=== PATIENT | male | born 1965 | race Caucasian/White ===

== ENCOUNTER 2018-11-02 06:07 | Outpatient (CLI) | payer MEDICARE, MEDICAID ==
[~2018-11-02] VITALS: Ht 171.4 cm; Wt 47.7 kg
[~2018-11-02 06:07] MED LIST: IRON1TAB94 PO; LVT.05T PO; OLN5T PO; VITA1CAP59 PO
[2018-11-02] MEDS ORDERED: LEVO50TA6 PO (11:04)
[2018-11-02] MEDS ORDERED: MELA10CA2 PO (11:04)
[2018-11-02] MEDS ORDERED: OLAN5TAB3 PO (11:04)
[2018-11-02] MEDS ORDERED: FERR-84 PO (11:04)
[2018-11-02] MEDS ORDERED: VITA1CAP PO (11:04)
== END 2018-11-03 09:43 | disposition home or self-care (01) ==
LOC: PREOP 06:07
PROVIDERS: ATTEND Surgery
DX: Z01.818 Encounter for other preprocedural examination (principal)

== ENCOUNTER 2018-11-09 06:26 | Day surgery (SDC) | payer MEDICARE, MEDICAID ==
[~2018-11-09] VITALS: Ht 171.4 cm; Wt 47.7 kg
[2018-11-09] VITALS (9 sets, daily range): BP systolic 96–108; BP diastolic 59–67
[~2018-11-09 06:26] MED LIST changes: +FERR-84 PO; +LEVO50TA6 PO; +MELA10CA2 PO; +OLAN5TAB3 PO; +VITA1CAP PO
[2018-11-09] MEDS ORDERED: LIDOCAINE PF 2% 5 ML (XYLOCAINE) VIAL ONE (06:55)
[2018-11-09] MEDS ORDERED: fentaNYL INJECTION 100 MCG/2 ML AMP ONE (06:55)
[2018-11-09] MEDS ORDERED: proPOfol 200 MG/20 ML (DIPRIVAN) VIAL IV ONE (06:55)
[2018-11-09] MEDS ORDERED: SEVOFLURANE (ULTANE) 15 ML INHAL SOLN ONE ×4 (06:55→08:16)
[2018-11-09] MEDS ORDERED: CATHETER FLUSH 10 ML SYR IV PRN (07:00)
[2018-11-09] MEDS ORDERED: ceFAZolin INJECTION 1,000 MG in WATER (STERILE) FOR INJECTION 10 ML IV ONE (07:00)
[2018-11-09] MEDS: LACTATED RINGERS 1,000 ML IV PRN ×2 (07:23→08:26)
--- NOTE | 2018-11-09 07:45 | Progress Note-Pre Operative ---
Pre-Operative Progress Note H&P Reviewed The H&P was reviewed, patient examined and no changes noted. Date Seen by Provider: Nov 09, 2018 Time Seen by Provider: 07:37 Date H&P Reviewed: Nov 09, 2018 Time H&P Reviewed: 07:37 Pre-Operative Diagnosis: skin lesion neck KATARZYNA GARRISON DO Nov 09, 2018 07:45
[2018-11-09] MEDS ORDERED: fentaNYL INJECTION 100 MCG/2 ML AMP IVP ONE (08:15)
[2018-11-09] MEDS ORDERED: ONDANSETRON 4 MG/2 ML (SDV) Z0FRAN IVP PRN (08:15)
[2018-11-09] MEDS ORDERED: morphine INJ 10 MG/ML 1ML (SYR OR VIAL) IVP ONE (08:15)
[2018-11-09] MEDS ORDERED: MEPERIDINE (DEMEROL) INJ 50 MG/ML IVP ONE (08:15)
[2018-11-09] MEDS ORDERED: ONDANSETRON 4 MG/2 ML (SDV) Z0FRAN ONE (08:20)
[2018-11-09] MEDS ORDERED: DEXAMETHASONE 10 MG/ML (DECADRON) 1 ML VIAL ONE (08:20)
--- NOTE | 2018-11-09 08:30 | Progress Note-Post Operative ---
Post-Operative Progess Note Surgeon (s)/Trade Mark Attorney (s) Surgeon KATARZYNA GARRISON DO Trade Mark Attorney: na Pre-Operative Diagnosis skin lesion neck Post-Operative Diagnosis same Procedure & Operative Findings Date of Procedure 11/09/18 Procedure Performed/Findings excision skin lesion neck 1.5x4cm Anesthesia Type gen Estimated Blood Loss Estimated blood loss (mL): min Specimens/Packing Specimens Removed skin lesion neck KATARZYNA GARRISON DO Nov 09, 2018 08:30
--- NOTE | 2018-11-09 08:32 | Discharge Inst-Simple/Standard ---
Discharge Inst-Standard Discharge Medications New, Converted or Re-Newed RX: RX on Chart Patient Instructions/Follow Up Plan of Care/Instructions/FU: 12-14 days Abrahan Activity as Tolerated: Yes Discharge Diet: Regular Diet Other Inst to Patient Follow up Appt: Make appointment for 12-14 days. Instructions: No strenuous activity. May shower in 24 hours, no tub bath or soaking. Use incentive spirometer at home as directed. No Smoking Skin/Wound Care: May remove bandages in 24 hours. Keep area clean and dry. Symptoms to Report: Appetite Changes, Extremity Discoloration, Numbness/Tingling, Swelling Increased, Bleeding Excessive, Eyesight Changes, Pain Increased, Urine Color Change, Constipation(Persistent), Fever over 101 degree F, Pain/Pressure in chest, Urinating Difficulty, Cough Up/Vomit Blood, Heart Beat Irreg/Pounding, Pain/Pressure in jaw, Vaginal Bleeding Increase, Cramps in feet or legs, Lightheadedness, Pain/Pressure in shoulder, Diarrhea(Persistent), Memory Changes Suddenly, Questions/Concerns, Weight gain consecutive days, Dizziness/Fainting, Nausea/Vomiting, Shortness of Breath, Weight gain over 2 pounds If questions or concerns contact your physician Or seek help at emergency department. KATARZYNA GARRISON DO Nov 09, 2018 08:32
--- NOTE | 2018-11-09 12:22 | Anesthesia-General Post-Op ---
General Patient Condition Mental Status/LOC: Same as Preop Cardiovascular: Satisfactory Nausea/Vomiting: Absent Respiratory: Satisfactory Pain: Controlled Complications: Absent Post Op Complications Complications None Follow Up Care/Instructions Patient Instructions None needed. Anesthesia/Patient Condition Patient Condition Patient is doing well, no complaints, stable vital signs, no apparent adverse anesthesia problems. No complications reported per nursing. JARRETT BLACK CRNA Nov 09, 2018 12:22
--- NOTE | 2018-11-09 12:49 | OPERATIVE REPORT ---
DATE OF SERVICE: 11/09/2018 PREOPERATIVE DIAGNOSIS: Skin lesion, neck. POSTOPERATIVE DIAGNOSIS: Skin lesion, neck. PROCEDURE: Excision of skin lesion neck 1.5 x 4 cm. SURGEON: Katarzyna Gauthier DO ANESTHESIA: General. ESTIMATED BLOOD LOSS: Minimal. COMPLICATIONS: None. INDICATIONS: The patient is a 53-year-old male with skin lesion on the posterior neck that has continued to be slightly ulcerated. He understands risks and benefits of procedure and wished to proceed with procedure. Consent was signed and placed on the chart. DESCRIPTION OF PROCEDURE: The patient was taken to the operating suite, placed in the right lateral recumbent position. Timeout was performed. Local anesthetic was infiltrated around the area. An elliptical incision measuring 1.5 x 4 cm was made, removing skin and subcutaneous tissues. Once removed, this was labeled short suture superior and long suture left lateral. The area was then washed and dried. Hemostasis was achieved. The skin was then closed using 3-0 Prolene in simple interrupted fashion. The area was washed and dried and sterile bandage was applied. The patient tolerated the procedure well without any complications. He was taken to recovery room in stable condition. Job ID: [id number] DocumentID: [id number] Dictated Date: 11/09/2018 08:34:20 Mounting Inspector Date: 11/09/2018 12:49:03 Dictated By: KATARZYNA GAUTHIER DO [facility]OSPITALJose R
== END 2018-11-09 10:00 | disposition home or self-care (01) ==
LOC: SDC 06:26
PROVIDERS: ATTEND Surgery
DX: C44.42 Squamous cell carcinoma of skin of scalp and neck (principal); E07.9 Disorder of thyroid, unspecified; F20.9 Schizophrenia, unspecified; Z79.899 Other long term (current) drug therapy; Z82.49 Family history of ischemic heart disease and other diseases of the circulatory system; Z82.3 Family history of stroke
CPT/HCPCS: 87081; 88305

== ENCOUNTER → 2020-06-17 | Outpatient (CLI) | payer MEDICARE, MEDICAID ==
--- NOTE | 2020-06-17 09:19 | Diagnostic Imaging Report ---
INDICATION: LT ARM WEAKNESS WRIST PAIN NECK PAIN TECHNIQUE: 4 radiographs, 3 views of the left shoulder CORRELATION STUDY: None FINDINGS: The glenohumeral and acromioclavicular alignment are maintained and unremarkable. There is no evidence for acute fracture or dislocation. The visualized soft tissues are unremarkable. Likely old left rib fracture deformities. Mild left apical pleural thickening. IMPRESSION: 1. Negative for acute bony abnormality about the shoulder. Dictated by: Dictated on workstation # [id number]
--- NOTE | 2020-06-17 09:21 | Diagnostic Imaging Report ---
INDICATION: LT ARM WEAKNESS WRIST PAIN NECK PAIN TECHNIQUE: 3 views of the left wrist CORRELATION STUDY: None FINDINGS: The osseous structures of the wrist have an unremarkable appearance. Alignment is anatomic. There is no acute bony abnormality. The visualized soft tissues appearing unremarkable. IMPRESSION: 1. Unremarkable examination of the left wrist. Dictated by: Dictated on workstation # [id number]
--- NOTE | 2020-06-17 09:23 | Diagnostic Imaging Report ---
INDICATION: Pain and numbness over the past 3 days. No known injury. TECHNIQUE: AP, lateral, and odontoid views of the cervical spine.. CORRELATION STUDY: None. FINDINGS: The cervicothoracic junction is not visualized on the lateral projection. The visualized cervical spinal alignment is anatomic. Vertebral body heights are maintained. Disc spaces are overall preserved. No significant large bulky endplate spur-like formation. The odontoid is largely obscured. Lateral masses of C1-C2 are aligned. Posterior elements demonstrate relatively normal alignment. Prevertebral soft tissues are unremarkable. IMPRESSION: Incomplete visualization of the cervicothoracic junction. Visualized cervical spine is unremarkable. Dictated by: Dictated on workstation # [id number]
== END ==
LOC: RAD 08:48
PROVIDERS: ATTEND Nurse Practitioner Family
DX: M25.532 Pain in left wrist (principal); M54.2 Cervicalgia; R53.1 Weakness
CPT/HCPCS: 72040; 73030; 73110

== ENCOUNTER → 2020-07-11 | Outpatient (CLI) | payer MEDICARE, MEDICAID ==
--- NOTE | 2020-07-11 16:20 | Diagnostic Imaging Report ---
EXAMINATION: Magnetic resonance imaging of the left wrist without contrast DATE: July 11, 2020. COMPARISON: Left wrist radiographs June 17, 2020. HISTORY: 54-year-old male, left wrist pain. TECHNIQUE: Magnetic Resonance Imaging sequences were performed of the wrist without contrast. FINDINGS: TRIANGULAR FIBROCARTILAGE COMPLEX: The triangular fibrocartilage complex is grossly intact. INTRINSIC LIGAMENTS: The scapholunate and lunotriquetral ligaments are grossly intact. JOINTS: The radiocarpal, intercarpal, and distal radioulnar joints are intact. There is no joint effusion. CARPAL TUNNEL: The flexor retinaculum is unremarkable. The flexor digitorum superficialis and profundus are intact. The median nerve is unremarkable. FLEXOR TENDONS: The flexor carpi ulnaris, flexor pollicis longus and carpi radialis are intact. EXTENSOR TENDONS: Radial side extensor tendons are intact including: extensor pollicis longus, extensor carpi radialis brevis, extensor carpi radialis longus, extensor pollicis brevis and abductor pollicis longus. The extensor carpi ulnaris, extensor digitorum, extensor digiti minimi and extensor indicis tendons are intact. BONE: The bones all have normal configuration. The bone marrow signal is within normal limits. Specifically, negative for fracture, osteomyelitis, osteonecrosis, or marrow replacing process. BURSAE AND SOFT TISSUES: There is a dorsal ganglion cyst near the dorsal intercarpal ligament measuring 6 x 2 x 5 mm in size best demonstrated on coronal T2 fat saturation sequence image 13. IMPRESSION: 1. Grossly intact triangular fibrocartilage complex and intrinsic wrist ligaments. 2. Intact tendons without evidence of tenosynovitis. 3. No acute fracture, bone contusion, or evidence of osteonecrosis. 4. Dorsal ganglion cyst near the dorsal intercarpal ligament measuring 6 x 2 x 5 mm in size. 5. Unremarkable joint evaluation. Dictated by: Dictated on workstation # [id number]
--- NOTE | 2020-07-11 16:21 | Diagnostic Imaging Report ---
PROCEDURE: MR imaging cervical spine without contrast. TECHNIQUE: Multiplanar, multisequence MR imaging of the cervical spine was performed without contrast. DATE: July 11, 2020. COMPARISON: Cervical spine radiographs June 17, 2020. INDICATION: 54-year-old male, neck and left upper extremity pain. FINDINGS: There is normal cervical spine alignment. There is no evidence of a diffuse marrow infiltrating or replacing process. There is no focal concerning bone lesion. There is no identified abnormal signal in the cervical spinal cord. The disc heights are well preserved. C2-C3: There is no disc bulge. The uncovertebral and facet joints are unremarkable. There is no foraminal narrowing. There is no spinal canal stenosis. C3-C4: There is no disc bulge. The uncovertebral and facet joints are unremarkable. There is no foraminal narrowing. There is no spinal canal stenosis. C4-C5: There is no disc bulge. The uncovertebral and facet joints are unremarkable. There is no foraminal narrowing. There is no spinal canal stenosis. C5-C6: There is no disc bulge. The uncovertebral and facet joints are unremarkable. There is no foraminal narrowing. There is no spinal canal stenosis. C6-C7: There is a small posterior disc osteophyte complex. The uncovertebral and facet joints are unremarkable. There is mild left foraminal narrowing. There is no spinal canal stenosis. C7-T1: There is no disc bulge. The uncovertebral and facet joints are unremarkable. There is no foraminal narrowing. There is no spinal canal stenosis. IMPRESSION: 1. C6-C7 small posterior disc osteophyte complex with mild left foraminal and mild spinal stenosis. 2. No abnormal cord signal. 3. Unremarkable bone marrow evaluation. Dictated by: Dictated on workstation # [id number]
== END ==
LOC: RAD 14:58
PROVIDERS: ATTEND Nurse Practitioner Family
DX: M48.02 Spinal stenosis, cervical region (principal); M25.78 Osteophyte, vertebrae; M67.432 Ganglion, left wrist
CPT/HCPCS: 72141; 73221

== ENCOUNTER → 2020-07-16 | Outpatient (CLI) | payer MEDICARE, MEDICAID ==
--- NOTE | 2020-07-16 09:46 | Diagnostic Imaging Report ---
PROCEDURE: MRI left upper extremity without contrast. TECHNIQUE: Multiplanar, multisequence non contrast-enhanced MRI of the left forearm was accomplished. INDICATION: Left arm pain. COMPARISON: 07/11/2020 wrist MRI FINDINGS: No acute fracture is seen in the left forearm. There is focal increased T2 signal in the left distal ulna diaphysis, measuring about 3.4 cm in length. There is no cortical breach or endosteal scalloping and no focal defined lesion is seen. There is no bone marrow replacement seen on T1-weighted imaging. No fracture line is seen. Alignment appears normal. No elbow joint effusion is seen. No focal muscular atrophy is seen. No masses or fluid collections are seen in the forearm. The imaged flexor and extensor tendons appear normal. The distal brachialis and biceps tendon insertions appear normal. The left elbow and wrist joints are not well evaluated on this [id number]. IMPRESSION: 1. Increased T2 signal in the distal left ulnar diaphysis, could represent stress response or contusion. No fracture line is seen. 2. No soft tissue abnormality is identified in the left forearm. Dictated by: Dictated on workstation # [id number]
== END ==
LOC: RAD 08:00
PROVIDERS: ATTEND Nurse Practitioner Family
DX: M79.602 Pain in left arm (principal); M25.532 Pain in left wrist; M62.81 Muscle weakness (generalized)
CPT/HCPCS: 73218

== ENCOUNTER → 2022-01-29 | Outpatient (CLI) | payer MEDICARE, MEDICAID ==
--- NOTE | 2022-01-29 14:33 | Diagnostic Imaging Report ---
PROCEDURE: US left lower extremity venous. TECHNIQUE: Multiple real-time grayscale images were obtained over the left lower extremity in various projections. Additional duplex Doppler and color Doppler images were also obtained. INDICATION: Left lower leg swelling. COMPARISON: None. FINDINGS: The left common femoral vein, femoral vein, deep femoral vein, and popliteal vein are normal in appearance. These vessels show normal compressibility, color flow and doppler augmentation. The visualized deep calf veins demonstrate no distinct intraluminal thrombus. IMPRESSION: 1. No sonographic evidence of deep venous thrombosis in the left lower extremity. Dictated by: Dictated on workstation # [id number]
== END ==
LOC: RAD 13:39
PROVIDERS: ATTEND Family Medicine
DX: M79.89 Other specified soft tissue disorders (principal)

== ENCOUNTER 2022-05-27 05:31 | Outpatient (CLI) | payer MEDICARE, MEDICAID ==
[~2022-05-27] VITALS: Ht 170.2 cm; Wt 45.9 kg
[~2022-05-27 05:31] MED LIST changes: +BETA15CR14 TP; +OLAN2.5T27 PO
== END 2022-06-01 08:49 | disposition home or self-care (01) ==
LOC: PREOP 05:31
PROVIDERS: ATTEND Surgery
DX: Z01.818 Encounter for other preprocedural examination (principal); M75.92 Shoulder lesion, unspecified, left shoulder

== ENCOUNTER 2022-06-03 08:16 | Day surgery (SDC) | payer MEDICARE, MEDICAID ==
[~2022-06-03] VITALS: Ht 170 cm; Wt 45.9 kg
[2022-06-03] VITALS (9 sets, daily range): BP systolic 84–115; BP diastolic 49–66
[2022-06-03] MEDS ORDERED: LIDOCAINE/EPI 1%-1:100,000 (XYLOCAINE) 20ML ONE (08:30)
--- NOTE | 2022-06-03 08:31 | Progress Note-Pre Operative ---
Pre-Operative Progress Note Date H&P Reviewed: Jun 03, 2022 Time H&P Reviewed: 08:23 History & Physical: H&P Reviewed, Patient Examed, No changes noted Pre-Operative Diagnosis: left shoulder skin lesion KATARZYNA GARRISON DO Jun 03, 2022 08:31
[2022-06-03] MEDS ORDERED: ceFAZolin INJECTION 2,000 MG ONE (08:46)
[2022-06-03] MEDS ORDERED: NS (IVPB) 50 ML ONE (08:46)
[2022-06-03] MEDS ORDERED: LACTATED RINGERS 1,000 ML IV PRN (09:00)
[2022-06-03] MEDS ORDERED: ceFAZolin INJECTION 2,000 MG in NS (IVPB) 50 ML IV ONE (09:00)
[2022-06-03] MEDS ORDERED: proPOfol 200 MG/20 ML (DIPRIVAN) VIAL IV ONE (09:25)
[2022-06-03] MEDS ORDERED: ONDANSETRON 4 MG/2 ML (SDV) Z0FRAN ONE (09:25)
[2022-06-03] MEDS ORDERED: LIDOCAINE PF 2% 5 ML (XYLOCAINE) VIAL ONE (09:25)
[2022-06-03] MEDS ORDERED: MIDAZOLAM 2 MG/2 ML (VERSED) VIAL ONE (09:26)
[2022-06-03] MEDS ORDERED: fentaNYL INJ 100 MCG/2 ML AMP ONE (09:26)
[2022-06-03] MEDS ORDERED: ONDANSETRON 4 MG/2 ML (SDV) Z0FRAN IVP PRN (10:00)
[2022-06-03] MEDS ORDERED: morphine INJ 10 MG/ML 1ML (SYR OR VIAL) IVP ONE (10:00)
[2022-06-03] MEDS ORDERED: SEVOFLURANE (ULTANE) 15 ML INHAL SOLN ONE (10:32)
--- NOTE | 2022-06-03 10:38 | Progress Note-Post Operative ---
Post-Operative Progess Note Surgeon (s)/Furnace And Wash Equipment Operator (s) Surgeon KATARZYNA GARRISON DO Furnace And Wash Equipment Operator: na Pre-Operative Diagnosis left shoulder skin lesion Post-Operative Diagnosis same Procedure & Operative Findings Date of Procedure 06/03/22 Procedure Performed/Findings excision left shoulder skin lesion 6x3 cm Anesthesia Type general Estimated Blood Loss Estimated blood loss (mL): minimal Specimens/Packing Specimens Removed skin lesion left shoulder KATARZYNA GARRISON DO Jun 03, 2022 10:38
--- NOTE | 2022-06-03 10:39 | Discharge Inst-Simple/Standard ---
Discharge Inst-Standard Patient Instructions/Follow Up Plan of Care/Instructions/FU: 2 weeks Abrahan Activity as Tolerated: No Discharge Diet: Regular Diet Other Inst to Patient Follow up Appt: Make appointment for 2 week. Instructions: No lifting greater than 10 pounds. No strenuous activity. May shower in 24 hours, no tub bath or soaking. Use incentive spirometer at home as directed. No Smoking Skin/Wound Care: You have special glue over your incision that will fall off on it's own. Symptoms to Report: Appetite Changes, Extremity Discoloration, Numbness/Tingling, Swelling Increased, Bleeding Excessive, Eyesight Changes, Pain Increased, Urine Color Change, Constipation(Persistent), Fever over 101 degree F, Pain/Pressure in chest, Urinating Difficulty, Cough Up/Vomit Blood, Heart Beat Irreg/Pounding, Pain/Pressure in jaw, Vaginal Bleeding Increase, Cramps in feet or legs, Lightheadedness, Pain/Pressure in shoulder, Diarrhea(Persistent), Memory Changes Suddenly, Questions/Concerns, Weight gain consecutive days, Dizziness/Fainting, Nausea/Vomiting, Shortness of Breath, Weight gain over 2 pounds If questions or concerns contact your physician Or seek help at emergency department. KATARZYNA GARRISON DO Jun 03, 2022 10:38
--- NOTE | 2022-06-03 11:50 | Anesthesia-General Post-Op ---
General Patient Condition Mental Status/LOC: Same as Preop Cardiovascular: Satisfactory Nausea/Vomiting: Absent Respiratory: Satisfactory Pain: Controlled Complications: Absent Post Op Complications Complications None Follow Up Care/Instructions Patient Instructions None needed. Anesthesia/Patient Condition Patient Condition Patient is doing well, no complaints, stable vital signs, no apparent adverse anesthesia problems. No complications reported per nursing. MINDA KNAPP DO Jun 03, 2022 11:50
--- NOTE | 2022-06-03 23:03 | OPERATIVE REPORT ---
DATE OF SERVICE: 06/03/2022 PREOPERATIVE DIAGNOSIS: Left shoulder skin lesion. POSTOPERATIVE DIAGNOSIS: Left shoulder skin lesion. PROCEDURE: Excision of left shoulder skin lesion 6 x 3 cm. SURGEON: Katarzyna Gauthier DO ANESTHESIA: General. ESTIMATED BLOOD LOSS: Minimal. COMPLICATIONS: None. SPECIMENS: Skin lesion, left shoulder. INDICATIONS: The patient is a 56-year-old male with skin lesion, left shoulder. This is needing excised. Consent was obtained for excision. Risks and benefits were previously discussed. DESCRIPTION OF PROCEDURE: The patient was prepped and draped in sterile fashion. Timeout was performed. Local anesthetic was infiltrated around the lesion. An elliptical incision around the lesion measuring 6 x 3 cm was made. Skin and subcutaneous tissues were removed with cautery. The specimen was tied long suture lateral, short suture superiorly. Hemostasis was achieved. Subcutaneous tissues then reapproximated using 3-0 Vicryl. Skin was then closed using 4-0 Monocryl in running subcuticular fashion. The area was then washed and dried and Skin Affix was placed over the incision. The patient tolerated the procedure well, no complications, taken to recovery room in stable condition. Job ID: [id number] DocumentID: [id number] Dictated Date: 06/03/2022 19:07:49 Publications Writer Date: 06/03/2022 23:01:00 Dictated By: KATARZYNA GAUTHIER DO
== END 2022-06-03 12:40 | disposition home or self-care (01) ==
LOC: SDC 08:16
PROVIDERS: ATTEND Surgery
DX: C44.619 Basal cell carcinoma of skin of left upper limb, including shoulder (principal)
CPT/HCPCS: 87081; 88305

== ENCOUNTER → 2022-09-03 | Outpatient (CLI) | payer MEDICARE, MEDICAID ==
[~2022-09-03] MED LIST changes: +GADOTERATE 0.5 MMOL/ML (CLARISCAN) 5 ML VIAL IV ONE
--- NOTE | 2022-09-03 16:27 | Diagnostic Imaging Report ---
PROCEDURE: MRI pelvis with and without contrast. TECHNIQUE: Multiplanar, multisequence MRI of the pelvis was performed with and without contrast. INDICATION: Anal polyp. FINDINGS: The visualized portions of the prostate gland and pelvis are unremarkable. There is a 1.3 cm T2 hyperintense, T1 hypointense, nonenhancing lesion arising from the right anterior anal canal at 11:00. This protrudes into the gluteal cleft. There is no suspicious enhancement seen within the nodule or adjacent anal canal. No suspicious lymphadenopathy is seen. Soft tissues and osseous structures are unremarkable. Vasculature is unremarkable. IMPRESSION: A 1.3 cm nonenhancing nodule arising from the anterior anal canal at 11:00. Dictated by: Dictated on workstation # [id number]
== END ==
LOC: RAD 07:57
PROVIDERS: ATTEND Surgery
DX: K62.0 Anal polyp (principal)
CPT/HCPCS: 72197

== ENCOUNTER 2022-09-22 05:41 | Outpatient (CLI) | payer MEDICARE, MEDICAID ==
[~2022-09-22] VITALS: Ht 170.2 cm; Wt 46.7 kg
[~2022-09-22 05:41] MED LIST changes: -GADOTERATE 0.5 MMOL/ML (CLARISCAN) 5 ML VIAL IV ONE
== END 2022-09-27 14:34 ==
LOC: PREOP 05:41
PROVIDERS: ATTEND Surgery
DX: Z01.818 Encounter for other preprocedural examination (principal)

== ENCOUNTER 2022-10-05 10:41 | Day surgery (SDC) | payer MEDICARE, MEDICAID ==
[~2022-10-05] VITALS: Ht 170.2 cm; Wt 46.7 kg
[2022-10-05] MEDS ORDERED: LACTATED RINGERS 1,000 ML IV STA (10:43)
[2022-10-05 11:19] VITALS: BP 105/66
[2022-10-05] MEDS ORDERED: PROPOFOL INJECTION 50 ML IV ONE (11:25)
--- NOTE | 2022-10-05 11:51 | Progress Note-Post Operative ---
Post-Operative Progess Note Surgeon (s)/Telecommunications Professional (s) Surgeon KATARZYNA GARRISON DO Telecommunications Professional: na Pre-Operative Diagnosis anal growth Post-Operative Diagnosis same Procedure & Operative Findings Date of Procedure 10/05/22 Procedure Performed/Findings colonoscopy Anesthesia Type per die holder Estimated Blood Loss Estimated blood loss (mL): none Specimens/Packing Specimens Removed na KATARZYNA GARRISON DO Oct 05, 2022 11:51
--- NOTE | 2022-10-05 11:52 | Discharge Inst-Simple/Standard ---
Discharge Inst-Standard Patient Instructions/Follow Up Plan of Care/Instructions/FU: 2 weeks Abrahan Activity as Tolerated: Yes Discharge Diet: Regular Diet KATARZYNA GARRISON DO Oct 05, 2022 11:52
[2022-10-05 11:55] VITALS: BP 83/52
[2022-10-05 12:00] VITALS: BP 93/51
--- NOTE | 2022-10-05 12:07 | Anesthesia-General Post-Op ---
MAC Patient Condition Mental Status/LOC: Same as Preop Cardiovascular: Satisfactory Nausea/Vomiting: Absent Respiratory: Satisfactory Pain: Controlled Complications: Absent Post Op Complications Complications None Follow Up Care/Instructions Patient Instructions None needed. Anesthesiology Discharge Order Discharge Order Patient is doing well, no complaints, stable vital signs, no apparent adverse anesthesia problems. No complications reported per nursing. JARRETT BLACK CRNA Oct 05, 2022 12:07
[2022-10-05 12:10] VITALS: BP 91/55
[2022-10-05 12:24] VITALS: BP 91/55
--- NOTE | 2022-10-05 16:32 | OPERATIVE REPORT ---
DATE OF SERVICE: 10/05/2022 PREOPERATIVE DIAGNOSIS: Anal growth. POSTOPERATIVE DIAGNOSIS: Anal growth. PROCEDURE: Colonoscopy. SURGEON: Katarzyna Gauthier DO ANESTHESIA: Per FERRYBOAT PILOT. ESTIMATED BLOOD LOSS: None. COMPLICATIONS: None. INDICATIONS: The patient is a 56-year-old male with anal growth. He understands risks and benefits of procedure, and wishes to proceed. Consent was signed in chart. DESCRIPTION OF PROCEDURE: The patient was taken to endoscopy suite, placed in left lateral recumbent position. Timeout was performed. Rectal exam was performed demonstrating an approximately 1.5 cm anal growth, soft, almost lipomatous feel to it. No other polyps, masses, or ulcerations. Scope was inserted in the rectum and advanced all the way to the cecum with minimal difficulty. Prep was adequate. Scope was slowly retracted back. No polyps, masses, or ulcerations in the cecum, ascending, transverse, descending, and sigmoid colon. Once in the rectum, scope was retroflexed noting no other pathology. Scope was returned to its normal position, slowly withdrawn until completely removed. The patient tolerated the procedure well, no complications, taken to recovery room in stable condition. RECOMMENDATIONS: The patient will repeat colonoscopy in 10 years unless family history of colon cancer, personal history of polyps, which will then be 5 years. The patient will follow up in 2 weeks to discuss excising anal mass. Job ID: [id number] DocumentID: [id number] Dictated Date: 10/05/2022 11:54:50 Refrigerating Oiler Date: 10/05/2022 16:22:00 Dictated By: KATARZYNA GAUTHIER DO
== END 2022-10-05 13:25 | disposition home or self-care (01) ==
LOC: ENDO 10:41
PROVIDERS: ATTEND Surgery
DX: K62.89 Other specified diseases of anus and rectum (principal); K62.0 Anal polyp

== ENCOUNTER 2022-10-20 05:30 | Outpatient (CLI) | payer MEDICARE, MEDICAID ==
[~2022-10-20] VITALS: Ht 170.2 cm; Wt 46.7 kg
== END 2022-10-20 12:20 | disposition home or self-care (01) ==
LOC: PREOP 05:30
PROVIDERS: ATTEND Surgery
DX: Z01.818 Encounter for other preprocedural examination (principal)

== ENCOUNTER 2022-10-28 09:18 | Day surgery (SDC) | payer MEDICARE, MEDICAID ==
[2022-10-28] VITALS (12 sets, daily range): BP systolic 87–125; BP diastolic 50–91
[~2022-10-28] VITALS: Ht 170.2 cm; Wt 46.7 kg
[2022-10-28] MEDS ORDERED: ceFAZolin INJECTION 2,000 MG in NS (IVPB) 50 ML 50 ML IV ONE (10:00)
[2022-10-28] MEDS ORDERED: LACTATED RINGERS 1,000 ML 1,000 ML IV PRN (10:00)
[2022-10-28] MEDS ORDERED: LIDOCAINE 1% w/EPI 1:100,000 20 ML VIAL ONE (10:04)
--- NOTE | 2022-10-28 10:24 | Progress Note-Pre Operative ---
Pre-Operative Progress Note Date H&P Reviewed: Oct 28, 2022 Time H&P Reviewed: 10:24 History & Physical: H&P Reviewed, Patient Examed, No changes noted Pre-Operative Diagnosis: anal mass KATARZYNA GARRISON DO Oct 28, 2022 10:24
[2022-10-28] MEDS ORDERED: SEVOFLURANE (ULTANE) 15 ML INHAL SOLN ONE ×2 (10:57→11:58)
[2022-10-28] MEDS ORDERED: ONDANSETRON INJECTION 4 MG/2 ML (SDV) ONE (10:57)
[2022-10-28] MEDS ORDERED: LIDOCAINE PF 2% 5 ML VIAL ONE (10:57)
[2022-10-28] MEDS ORDERED: MIDAZOLAM INJ 2 MG/2 ML VIAL ONE (10:57)
[2022-10-28] MEDS ORDERED: fentaNYL INJECTION 100 MCG/2 ML VIAL ONE (10:57)
[2022-10-28] MEDS ORDERED: proPOfol INJECTION 200 MG/20 ML VIAL IV ONE (10:57)
[2022-10-28] MEDS ORDERED: LIDOCAINE 1% w/EPI 1:100,000 20 ML VIAL INJ ONE (11:48)
--- NOTE | 2022-10-28 12:04 | Progress Note-Post Operative ---
Post-Operative Progess Note Surgeon (s)/Housemaid (s) Surgeon KATARZYNA GARRISON DO Housemaid: na Pre-Operative Diagnosis anal mass Post-Operative Diagnosis same Procedure & Operative Findings Date of Procedure 10/28/22 Procedure Performed/Findings excision perianal mass 2x2cm Anesthesia Type general Estimated Blood Loss Estimated blood loss (mL): minimal Specimens/Packing Specimens Removed perianal mass KATARZYNA GARRISON DO Oct 28, 2022 12:04
--- NOTE | 2022-10-28 12:06 | Anesthesia-General Post-Op ---
General Patient Condition Mental Status/LOC: Same as Preop Cardiovascular: Satisfactory Nausea/Vomiting: Absent Respiratory: Satisfactory Pain: Controlled Complications: Absent Post Op Complications Complications None Follow Up Care/Instructions Patient Instructions None needed. Anesthesia/Patient Condition Patient Condition Patient is doing well, no complaints, stable vital signs, no apparent adverse anesthesia problems. No complications reported per nursing. ALETA PEÑA CRNA Oct 28, 2022 12:06
--- NOTE | 2022-10-28 12:07 | Discharge Inst-Simple/Standard ---
Discharge Inst-Standard Patient Instructions/Follow Up Plan of Care/Instructions/FU: 2 weeks Abrahan Activity as Tolerated: No Discharge Diet: Regular Diet Other Inst to Patient Follow up Appt: Make appointment for 2 week. Instructions: No lifting greater than 10 pounds. No strenuous activity. May shower in 24 hours, no tub bath or soaking. Use incentive spirometer at home as directed. No Smoking Skin/Wound Care: You have stitches closing your incision that will fall off on it's own. Keep the area clean and dry. Shower after bowel movements to keep that area clean and pat dry. Symptoms to Report: Appetite Changes, Extremity Discoloration, Numbness/Tingling, Swelling Increased, Bleeding Excessive, Eyesight Changes, Pain Increased, Urine Color Change, Constipation(Persistent), Fever over 101 degree F, Pain/Pressure in ch est, Urinating Difficulty, Cough Up/Vomit Blood, Heart Beat Irreg/Pounding, Pain/Pressure in jaw, Vaginal Bleeding Increase, Cramps in feet or legs, Lightheadedness, Pain/Pressure in shoulder, Diarrhea(Persistent), Memory Changes Suddenly, Questions/Concerns, Weight gain consecutive days, Dizziness/Fainting, Nausea/Vomiting, Shortness of Breath, Weight gain over 2 pounds If questions or concerns contact your physician Or seek help at emergency department. KATARZYNA GARRISON DO Oct 28, 2022 12:07
[2022-10-28] MEDS ORDERED: morphine INJ 10 MG/ML 1ML (SYR OR VIAL) IVP ONE (12:15)
[2022-10-28] MEDS ORDERED: fentaNYL INJECTION 100 MCG/2 ML VIAL IVP ONE (12:15)
[2022-10-28] MEDS ORDERED: MEPERIDINE INJ 50 MG/ML VIAL IVP ONE (12:15)
[2022-10-28] MEDS ORDERED: ONDANSETRON INJECTION 4 MG/2 ML (SDV) IVP PRN (12:15)
--- NOTE | 2022-10-28 17:47 | OPERATIVE REPORT ---
DATE OF SERVICE: 10/28/2022 PREOPERATIVE DIAGNOSIS: Anal mass. POSTOPERATIVE DIAGNOSIS: Anal mass. PROCEDURE: Excision of perianal mass, 2 x 2 cm. SURGEON: Katarzyna Gauthier DO ANESTHESIA: General. ESTIMATED BLOOD LOSS: Minimal. COMPLICATIONS: None. INDICATIONS: The patient is a 57-year-old male with anal mass. He understands risks and benefits of procedure and wished to proceed. Consent was signed in chart. DESCRIPTION OF PROCEDURE: The patient was taken to the operating suite where he was placed in lithotomy position. Timeout was performed. Pudendal block was performed bilaterally. A #15 blade scalpel was used to make an elliptical incision around the palpable mass. Then continued to be dissected around. A large piece of fat were excised, but also a cystic component, which did get cut and had drainage. Cautery was used to achieve hemostasis. The entire area was removed. The skin was then closed using 3-0 chromic in a running fashion. The area was washed and dried. The patient tolerated the procedure well without complications, taken to recovery room in stable condition. Job ID: [id number] DocumentID: [id number] Dictated Date: 10/28/2022 12:38:23 Medical Billing And Coding Instructor Date: 10/28/2022 17:45:00 Dictated By: KATARZYNA GAUTHIER DO
== END 2022-10-28 14:30 ==
LOC: SDC 09:18
PROVIDERS: ATTEND Surgery
DX: K62.89 Other specified diseases of anus and rectum (principal); K62.0 Anal polyp
CPT/HCPCS: 87081

== ENCOUNTER → 2023-02-15 | Outpatient (CLI) | payer MEDICARE, MEDICAID ==
--- NOTE | 2023-02-15 10:28 | Diagnostic Imaging Report ---
PROCEDURE: US right lower extremity venous. TECHNIQUE: Multiple real-time grayscale images were obtained over the right lower extremity in various projections. Additional spectral analysis and color Doppler duplex images were also obtained. INDICATION: 2 weeks history of swollen painful right leg FINDINGS: Right lower extremity venous system showed normal color flow, compressibility and normal waveforms. No superficial or deep thrombus identified. IMPRESSION: Negative lateral right lower extremity venous Doppler and ultrasound exam Dictated by: Dictated on workstation # [id number]
== END ==
LOC: RAD 09:15
PROVIDERS: ATTEND Nurse Practitioner Family
DX: M79.89 Other specified soft tissue disorders (principal)

== ENCOUNTER 2023-02-17 06:10 | Emergency (ER) | payer MEDICARE, MEDICAID ==
[~2023-02-17] VITALS: Ht 175.2 cm; Wt 49.8 kg
--- NOTE | 2023-02-17 06:24 | ED Lower Extremity ---
General Stated Complaint: LOWER EXTREMITY BLEED Source: patient, EMS Exam Limitations: no limitations History of Present Illness Date Seen by Provider: Feb 17, 2023 Time Seen by Provider: 06:13 Initial Comments 57-year-old male presents from local nursing facility for bleeding from his right lateral foot. Symptoms started this morning. He states he was trying to put on his CARROL hose and had bleeding in the area. He is not on blood thinning medications. Pressure dressing was placed and the patient was transferred via EMS. He is not on any blood thinning medications. All other systems reviewed and negative except documented per HPI. Voice recognition software was used to help create this chart Allergies and Home Medications Allergies Coded Allergies: No Known Drug Allergies (Unverified , 10/28/22) Patient Home Medication List Home Medication List Reviewed: Yes Betamethasone/Propylene Glyc (Betamethasone Dp Aug 0.05% Crm) 0.05 % Cream..g., 15 GM TP NEEDED PRN for RASH, (Reported) Entered as Reported by: Natacha Hou on 05/26/22 1503 Ferrous Sulfate (Iron) 325 Mg Tablet, 325 MG PO DAILY, (Reported) Entered as Reported by: RICKIE PEREYRA on 11/02/18 1104 Levothyroxine Sodium (Levothyroxine Sodium) 50 Mcg Tablet, 50 MCG PO DAILY, (Reported) Entered as Reported by: RICKIE PEREYRA on 11/02/18 1104 Melatonin (Melatonin) 10 Mg Capsule, 10 MG PO DAILY, (Reported) Entered as Reported by: RICKIE PEREYRA on 11/02/18 1104 Olanzapine (Olanzapine) 2.5 Mg Tablet, 2.5 MG PO HS, (Reported) Entered as Reported by: Natacha Hou on 05/26/22 1503 Vitamin B Complex (Vitamin B Complex) 1 Each Capsule, 1 EACH PO DAILY, (Reported) Entered as Reported by: RICKIE PEREYRA on 11/02/18 1104 Review of Systems Constitutional: see HPI Past Gvhvwvj-Hosqjg-Znxurg Hx Patient Social History Tobacco Use?: No Use of E-Cig and/or Vaping dev: No Substance use?: No Alcohol Use?: No Immunizations Up To Date Tetanus Booster (TDap): Unknown First/Initial COVID19 Vaccinat: 03/27/20 Second COVID19 Vaccination Chris: 04/27/20 Third COVID19 Vaccination Date: 03/10/21 Seasonal Allergies Seasonal Allergies: Yes Past Medical History Surgeries: Yes (HAS HAD 3 CYSTS REMOVED) Respiratory: No Currently Using CPAP: No Currently Using BIPAP: No Cardiac: No Neurological: No Sexually Transmitted Disease: No HIV/AIDS: No Genitourinary: No Gastrointestinal: No Musculoskeletal: No Endocrine: Yes Hypothyroidsim HEENT: No Loss of Vision: Denies Hearing Impairment: Denies Cancer: No Psychosocial: Yes Schizophrenia Integumentary: Yes (LESIONS) Blood Disorders: Yes (ANEMIA) Adverse Reaction/Blood Tranf: No Physical Exam Vital Signs Capillary Refill : Height, Weight, BMI Height: 5'7.50" Weight: 105lbs. 4.0oz. [id number]; 16.12 BMI Method: General Appearance: WD/WN, no apparent distress Legs: bilateral leg non-tender, bilateral leg normal inspection, bilateral leg normal range of motion Knees: bilateral knee non-tender, bilateral knee normal inspection, bilateral knee normal range of motion Ankles: bilateral ankle non-tender, bilateral ankle normal inspection, bilateral ankle normal range of motion Feet: right foot other (There is a punctate area of likely recent bleeding over a varicosity in his right lateral foot. This is currently hemostatic. Remainder the foot is neurovascular and sensory intact.) Skin: normal color, warm/dry Departure Communication (Admissions) Patient is hemodynamically stable. Vital signs completely normal, no active bleeding, no indication for CBC or other emergent testing at this time. Current pressure dressing removed and there is no active bleeding. Pressure dressing were placed and the patient is discharged back to nursing facility recommendation no CARROL hose for couple days. Impression Primary Impression: Bleeding from varicose vein Disposition: 01 HOME, SELF-CARE Condition: Stable Departure-Patient Inst. Referrals: INES NOLASCO MD (PCP/Family) Primary Care Physician Patient Instructions: Varicose Veins (DC) Add. Discharge Instructions: Do not use CARROL hose for at least 48 hours. Do not scrub the area while bathing but you may let water run over the area. Keep the pressure dressing in place and change as needed. Return to the emergency department for any severe concerns. FIOR ROMERO DO Feb 17, 2023 06:24
[2023-02-17 06:36] VITALS: BP 111/96
== END 2023-02-17 06:52 | disposition home or self-care (01) ==
LOC: EDUNIT# 06:10 → ER 06:11
DX: I83.891 Varicose veins of right lower extremity with other complications (principal)
CPT/HCPCS: 99283